=== PATIENT | female | born 1960 | race Caucasian/White ===

== ENCOUNTER 2017-04-17 11:18 | Emergency (ER) | payer BC, OTHER ==
[~2017-04-17] VITALS: Ht 170.2 cm; Wt 84.4 kg
[2017-04-17] MEDS ORDERED: IBUPROFEN 600600 M1 PO (12:44)
[2017-04-17] MEDS ORDERED: ULTRAM 50MG TAB50 MG PO (12:44)
[2017-04-17] MEDS ORDERED: TIZANIDINE HCL4 MG PO (12:44)
[2017-04-17 13:19] VITALS: BP 171/101
== END 2017-04-17 13:23 | disposition home or self-care (01) ==
LOC: ER 11:18
DX: S16.1XXA Strain of muscle, fascia and tendon at neck level, initial encounter (principal); S40.012A Contusion of left shoulder, initial encounter; F10.99 Alcohol use, unspecified with unspecified alcohol-induced disorder; Z88.0 Allergy status to penicillin; V89.2XXA Person injured in unspecified motor-vehicle accident, traffic, initial encounter; Y93.I9 Activity, other involving external motion; Y92.89 Other specified places as the place of occurrence of the external cause; Y99.8 Other external cause status